=== PATIENT | female | born 1995 | race Caucasian/White ===

== ENCOUNTER → 2017-06-26 | Outpatient (CLI) | payer BC ==
[~2017-06-26] MED LIST: ALBU1AER9 INH; HYDROCODON ACETAMIN PO
== END | disposition home or self-care (01) ==
LOC: C.LABSPEC 10:59 → MERGE 10:59
PROVIDERS: ATTEND Physician Assistant
DX: Z01.419 Encounter for gynecological examination (general) (routine) without abnormal findings (principal)